=== PATIENT | female | born 1970 | race Caucasian/White ===

== ENCOUNTER → 2021-02-19 16:14 | Outpatient (CLI) | payer BC, SELFPAY ==
[2021-02-19] MEDS: COVID-19 VACC, Ad26(JANSSEN)/PF 0.5 ML IM (16:17)
== END ==
PROVIDERS: Visit Provider Internal Medicine
DX: Z23 Encounter for immunization (principal)
CPT/HCPCS: 0031A; 91303

== ENCOUNTER → 2021-06-03 12:13 | Outpatient (CLI) | payer BC, SELFPAY | PROVIDERS: PCP Physician Assistant; Referring Provider Ophthalmology; Visit Provider Ophthalmology | DX: H10.32 Unspecified acute conjunctivitis, left eye (principal) | CPT/HCPCS: 87070; 87205; 87252 ==

== ENCOUNTER → 2021-06-22 08:30 | Outpatient (CLI) | payer BC, SELFPAY ==
[2021-06-22 18:44] LABS: Add Manual Diff / Slide Review NO; Basophils Absolute Auto 100 /uL (0-100); Basophils Percent Auto 0.9 % (0-2); Eosinophils Absolute Auto 200 /uL (0-450); Eosinophils Percent Auto 2.3 % (2-4); Hematocrit 39.9 % (36-46); Hemoglobin 12.8 g/dL (12.0-16.0); Lymphocytes Absolute Auto 2100 /uL (1100-4500); Lymphocytes Percent Auto 24.3 % (25-40); Mean Corpuscular Hemoglobin 30.4 PG (26-34); Monocytes Absolute Auto 600 /uL (0-900); Monocytes Percent Auto 6.4 % (3-14); Neutrophils Absolute Auto 5800 /uL (1500-7000); Neutrophils Percent Auto 66.1 % (50-75); Platelet Count 215 X10^3/uL (150-400); Red Blood Cell Count 4.21 X10^6/uL (4.0-5.2); Red Cell Distribution Width 13.7 % (11.6-14.8); White Blood Cell Count 8.8 X10^3/uL (4.5-11.0)
[2021-06-22 18:52] LABS: HEMOLYSIS 16 (0-50); Iron 62 ug/dL (37-170)
[2021-06-22 18:55] LABS: Alanine Aminotransferase 22 IU/L (<35); Albumin 4.2 g/dL (3.5-5.0); Albumin Globulin Ratio 1.4 (1.0-2.8); Alkaline Phosphatase 59 U/L (38-126); Aspartate Aminotransferase 28 IU/L (14-36); BUN Creatinine Ratio 27.1 (6-22); Bilirubin Total 0.4 mg/dL (0.2-1.3); Blood Urea Nitrogen 16 mg/dL (7-17); Carbon Dioxide 28 mmol/L (22-32); Chloride 103 mmol/L (98-107); Cholesterol 194 mg/dL (140-199); Estimated Glomerular Filt Rate > 60.0 mL/min (>60); Glucose 87 mg/dL (70-100); HDL Cholesterol 49 mg/dL (40-60); HEMOLYSIS < 15 (0-50); LDL Cholesterol Calculated 110 mg/dL (<100); Sodium 139 mmol/L (137-145); Total Protein 7.2 g/dL (6.3-8.2); Triglycerides 174 mg/dL (35-150)
[2021-06-22 19:07] LABS: Percent Iron Saturation 18 % (15-50); Total Iron Binding Capacity 336 ug/dL (265-497); Transferrin 246 mg/dL (206-381)
[2021-06-22 19:26] LABS: Ferritin 24 ng/mL (6-137)
== END ==
PROVIDERS: PCP Physician Assistant; Visit Provider Family Medicine
DX: D50.9 Iron deficiency anemia, unspecified (principal); J45.30 Mild persistent asthma, uncomplicated; Q24.9 Congenital malformation of heart, unspecified
CPT/HCPCS: 80053; 80061; 82728; 83540; 83550; 85025

== ENCOUNTER → 2022-04-18 07:06 | Outpatient (CLI) | payer BC, SELFPAY ==
[2022-04-18 20:49] LABS: COVID19 - ORCAS (NP or Nasal) Negative (Negative)
== END ==
PROVIDERS: PCP Physician Assistant; Visit Provider Family Medicine
DX: Z20.822 Contact with and (suspected) exposure to COVID-19 (principal)
CPT/HCPCS: U0003

== ENCOUNTER → 2022-10-04 12:34 | Outpatient (CLI) | payer BC, SELFPAY ==
--- NOTE | 2022-10-04 | DI.MG.S_ITS ---
UNILATERAL RIGHT DIGITAL DIAGNOSTIC MAMMOGRAM 3D/2D WITH ADDITIONAL VIEWS: 10/04/2022 CLINICAL: Additional evaluation requested from prior study. Comparison is made to exam dated: 08/01/2022 mammogram - Outside facility. The right breast is heterogeneously dense, which may obscure small masses (category c / 51-75% glandular tissue). There is a possible 8 mm oval low density asymmetry with a circumscribed margin in the right breast at 8 o'clock anterior depth. This is seen in additional views. No other significant masses or calcifications are seen in the breast. IMPRESSION: INCOMPLETE: NEEDS ADDITIONAL IMAGING EVALUATION The possible 8 mm oval low density asymmetry in the right breast remains indeterminate. An ultrasound is recommended. This was performed immediately following this exam. Based on the Tyrer Cuzick model (a risk assessment model) the patient's lifetime risk is 13.6% and her 10 year risk is 3.2%. According to the ACR, ACS, and NCCN guidelines, an annual breast MRI exam along with mammogram is recommended if the patient's lifetime risk is 20% or greater. This exam was interpreted at Station ID: [id number]. NOTE: For mammograms, a report in lay terms will be sent to the patient. Approximately 15% of breast malignancies will not be visualized mammographically. In the management of a palpable breast mass, a negative mammogram must not discourage biopsy of a clinically suspicious lesion. Electronically Signed By: Leidy pastor/:10/04/2022 13:19:01 ACR BI-RADS Category 0: Incomplete 3340F
--- NOTE | 2022-10-04 12:36 | DI.US.S_ITS ---
ULTRASOUND OF RIGHT BREAST AND AXILLA: 10/04/2022 CLINICAL: Patient returns today to evaluate an asymmetry in the right breast. Comparison is made to exams dated: 10/04/2022 mammogram - [facility] and 08/01/2022 mammogram - Outside facility. Color flow ultrasound of the right breast axilla was performed. Solis scale images of the real-time examination were reviewed. There is a 1.1 cm x 0.8 cm x 0.5 cm oval area of fibroglandular tissue with a circumscribed margin in the right breast at 9 o'clock anterior depth 2 cm from the nipple with the long axis parallel to the skin. This oval area of tissue is hypoechoic with a well-defined boundary and no posterior acoustic shadowing or enhancement. This correlates with mammography findings. Color flow imaging demonstrates that there is vascularity present. No significant abnormalities were seen sonographically in the right axilla. IMPRESSION: PROBABLY BENIGN The 1.1 cm x 0.8 cm x 0.5 cm area of tissue in the right breast most likely is fibroglandular tissue or a fibroadenoma, and is probably benign. A follow-up right mammogram and an ultrasound in 6 months is recommended to demonstrate stability. Findings and recommendations were conveyed to the patient at time of exam. This exam was interpreted at Station ID: [id number]. Electronically Signed By: Leidy pastor/:10/04/2022 14:39:22 letter sent: Followup Recommended Ultrasound BI-RADS: 3 Probably benign
== END ==
PROVIDERS: PCP Physician Assistant; Referring Provider Physician Assistant; Visit Provider Physician Assistant
DX: N63.10 Unspecified lump in the right breast, unspecified quadrant (principal); R92.8 Other abnormal and inconclusive findings on diagnostic imaging of breast
CPT/HCPCS: 76642; 77065; G0279

== ENCOUNTER 2023-02-22 13:30 | Outpatient (RCR) | payer BC, SELFPAY ==
--- NOTE | 2022-11-30 14:30 | ST.OPPOC ---
Physical, Occupational & Speech Therapy At [facility] Visit Care Team Role Provider Type Romina Owens PA-C Family Provider Advanced Vault Cashier Primary Care Provider Address: [place], [address] Leila Pozo PA-C Attending Provider Non-Staff Referring Provider Address: [facility] Celine Dodd [address] [place] [address], [id number] Speech Pathology Plan of Care Plan of Care Dates 11/30/2022 - 02/10/[address] Pozo Patient History Faith is a 52 year old female with a history of repeated ear infections. Pt had tubes placed as a child and an adenoidectomy. 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 Pt has migraines, cough-induced asthma, and allergies to dust mites and mold. Asthma is effectively treated with Albuterol inhaler. Colonoscopy in 2021 found a severely tortuous colon and pt had COVID in November 2022. Family history of cleft mitral valve, atrial septal defect, sudden onset unilateral sensorineural hearing loss with choclear implant to resolve, and chronic cough ( mother). Father has allergies, asthma, GERD, and a hiatal hernia. All siblings have asthma and 1 /3 siblings has epilepsy and atrial-septal defect and cleft-mitral valve. History of alcoholism in maternal and paternal grandmothers and pt stated she does not drink alcohol or caffeine. Short-term Goals 1. Pt will perform exercises to decrease strain on vocal folds and reduce frequency of coughing. 2. Pt will participate in laryngoscopy to inform treatment plan. Long-term Goals Pt will report reduced coughing throughout the day. Comment: Electronically Signed by: JOLLY Moreno 12/01/22 [id number] If you are in agreement with this Plan of Care, please return a signed and dated copy. I have reviewed this Plan of Care and certify that the skilled therapy services above are required to meet the patient?s needs. Physician Signature Date Printed Name and Credentials Clinical Instructor Signature Printed Name and Credentials
--- NOTE | 2022-11-30 14:30 | ST.OPIE ---
Visit Care Team Role Provider Type Romina Owens PA-C Family Provider Advanced Hydrometeorological Technician Primary Care Provider Specialty: Medical Address: [address] [place] [address], [address] Email: [email or web address] Leila Pozo PA-C Attending Provider Non-Staff Referring Provider Specialty: Allergy & Immunology Address: [address] [place] [address], [id number] Email: Speech-Language Pathology Initial Evaluation BALANCE STAFF STAKER Clinical Swallow Evaluation Start: 11/30/22 14:26 Freq: Status: Active Protocol: Document 11/30/22 14:26 ZS (Rec: 11/30/22 14:30 ZS [id number]) Clinical Swallow Evaluation Session Time Visit Start Time 13:30 Visit Stop Time 14:05 Total Visit Minutes 35 Visit Information Visit Number Initial Evaluation Plan of Care Dates 11/30/2022 - 02/10/2023 Insurance Information [facility] Out [facility] Referral Referring Provider Dr. Pozo Reason for Referral chronic cough Setting Assessment Location Outpatient Care Visit Type Note Type Initial evaluation Next Note Type Next Note Type Treatment Note Patient Information Identification Type Name History Faith is a 52 year old female with a history of repeated ear infections. Pt had tubes placed as a child and an adenoidectomy. 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 Pt has migraines, cough-induced asthma, and allergies to dust mites and mold. Asthma is effectively treated with Albuterol inhaler. Colonoscopy in 2021 found a severely tortuous colon and pt had COVID in November 2022. Family history of cleft mitral valve, atrial septal defect, sudden onset unilateral sensorineural hearing loss with choclear implant to resolve, and chronic cough (mother). Father has allergies, asthma, GERD, and a hiatal hernia. All siblings have asthma and 1/3 siblings has epilepsy and atrial-septal defect and cleft -mitral valve. History of alcoholism in maternal and paternal grandmothers and pt stated she does not drink alcohol or caffeine. Subjective Observations Faith arrived on time and ambulated to room independently. Pt provided extensive medical and family history in addition to [facility] intake paperwork. Reported by Patient Other Symptoms Coughing Current Diet Regular,Thin liquids Baseline Feeding Method Independent in self-feeding Objective Assessment Mental Status Alert,Responsive,Cooperative Oral Integrity WFL Dentition Within normal limits Lip Function Within normal limits Observation of Lips at Rest Symmetrical Pucker Within normal limits Lip Retraction Within normal limits Alternating Pucker/Lip Retraction Within normal limits Tongue Function Within normal limits Observations of Tongue at Rest Within normal limits Tongue Protrusion Within normal limits Tongue Retraction Within normal limits Tongue Lateralization Within normal limits Jaw Function Within normal limits Observations of Jaw at Rest Within normal limits Jaw Opening Within normal limits Jaw Closing Within normal limits Hard/Soft Palate Function Within normal limits Observations of Hard/Soft Palate Within normal limits Respiratory Sufficiency Within normal limits Comment Pt presented with symmetrical structures at rest and in motion. Tongue, lips, and jaw strength and ROM were WNL. Dentition present and WNL. Structure and function of oral mechanism appears WNL for the purposes of speech and swallowing. Pt exhibited fast rate of speech and resonance was mildly hyponasal. Food and Liquid Trials Results Pt reported chronic cough throughout the day and has been present for about 15 years. Faith moved to the area about 2 years ago. Cough was not responsive to allergy medication and does not change seasonally. Pt did not notice impact of stress levels on cough or changes throughout the day. Pt added cough comes in cycles, where cough will be present and worse for 2-3 weeks and improve for next 2-3 weeks. She has not seen an ENT regarding cough, though had an appointment regarding hearing and ear infections after speech therapy evaluation. Faith reported drinking about two 17 oz bottles of water per day and does not consume alcohol or caffeine. Pt's asthma is triggered by extreme temperature changes, elevation gain, or coughing fits. Cough is often dry. Discussed vocal relaxation exercises, increased water intake, and ENT referral for laryngoscopy to rule out structural or functional abnormalities in vocal folds. Pt expressed understanding and agreement with plan of care. Discussed replacing cough with breathing exercises or sipping water to reduce strain on vocal folds. Referrals Recommended Referrals Otolaryngology/ENT Education Patient/Caregiver Education Described results of evaluation,Patient expressed understanding of evaluation, Patient expressed agreement with goals & treatment plans, Patient requires further education/training Goals Short-term Goals 1. Pt will perform exercises to decrease strain on vocal folds and reduce frequency of coughing. 2. Pt will participate in laryngoscopy to inform treatment plan. Long-term Goals Pt will report reduced coughing throughout the day.
--- NOTE | 2022-12-05 14:04 | ST.OPTN ---
Visit Care Team Role Provider Type Romina Owens PA-C Family Provider Advanced Media Sales Executive Primary Care Provider Address: [address] [place] [address], [address] Leila Pozo PA-C Attending Provider Non-Staff Referring Provider Address: [address] [facility] [address], [place], [address] PV DESIGN ENGINEER Treatment Note PV DESIGN ENGINEER Treatment Note Start: 12/05/22 13:56 Freq: Status: Active Protocol: Document 12/05/22 13:56 ZS (Rec: 12/05/22 14:04 ZS [id number]) Speech Pathology Treatment Note Session Time Visit Start Time 13:30 Visit Stop Time 13:55 Total Visit Minutes 25 Visit Information Visit Number 1 Plan of Care Dates 11/30/2022 - 02/10/2023 Insurance Information [facility] Out of [facility] Treatment Setting Outpatient Care Visit Type Note Type Treatment Note Next Note Type Next Note Type Treatment Note General Information Patient History Faith is a 52 year old female with a history of repeated ear infections. Pt had tubes placed as a child and an adenoidectomy. 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 Pt has migraines, cough-induced asthma, and allergies to dust mites and mold. Asthma is effectively treated with Albuterol inhaler. Colonoscopy in 2021 found a severely tortuous colon and pt had COVID in November 2022. Family history of cleft mitral valve, atrial septal defect, sudden onset unilateral sensorineural hearing loss with cochlear implant to resolve, and chronic cough (mother). Father has allergies, asthma, GERD, and a hiatal hernia. All siblings have asthma and 1/3 siblings has epilepsy and atrial-septal defect and cleft -mitral valve. History of alcoholism in maternal and paternal grandmothers and pt stated she does not drink alcohol or caffeine. Subjective Identification Type Name Identification Reconciled With Medical Record Observations/Patient Presentation Faith arrived on time and ambulated to therapy room independently. Pt reported completing HEP and will talk to ENT in [place], [place] today to check medical records for previous laryngoscopy. Chief Complaint(s) Other Additional Areas of Concern chronic cough Objective Short Term Goals 1. Pt will perform exercises to decrease strain on vocal folds and reduce frequency of coughing. 2. Pt will participate in laryngoscopy to inform treatment plan. Jail Goals Pt will report reduced coughing throughout the day. Treatment Activities Reviewed HEP and discussed POC moving forward. Pt to touch base with [facility] regarding previous laryngoscopy and will have records shared if available. If records are not available, pt will cancel 12/12 appointment and schedule laryngoscopy prior to next PV DESIGN ENGINEER session. Assessment Patient Response to Treatment Good Rehab Potential Good Assessment of Improvement Pt reported drinking water has helped reduce cough and added sharp inhale worsened coughing symptoms. Faith reported suspected broken rib from coughing fit, which has led to more cough suppression rather than encouraging productive cough. Discussed use of water to help with cough suppression and pt expressed understanding. Provided education regarding purpose of water intake, swallowing rather than coughing, and yawn-sigh. Pt expressed understanding. Pt to continue with water intake and yawn-sigh between now and next appointment. Pt to provide either records of previous laryngoscopy or get appointment for laryngoscopy prior to next session. Reviewed with Patient Goals,Progress Being Made,Home Exercise Program Patient/Caregiver Understanding Excellent Plan Amount of Therapy Recommended 2-3 Months Frequency of Treatment Once a Week Length of Session 45 Minutes Therapeutic Contents Home Exercise Program,Other Additional Areas of Treatment Chronic cough Provided Patient/Caregiver Instruction Home Exercise Program,Plan of Care,Questions/Concerns Therapy Recommendations Continue with Current Program
--- NOTE | 2022-12-12 15:03 | ST.OPTN ---
Visit Care Team Role Provider Type Romina Owens PA-C Family Provider Advanced [employer] Insurance Sales Representative Primary Care Provider Address: [address] [place] [address], [address] Leila Pozo PA-C Attending Provider Non-Staff Referring Provider Address: [address] [facility] [address], [place], [address] WAREHOUSE PACKAGING SUPERVISOR Treatment Note WAREHOUSE PACKAGING SUPERVISOR Treatment Note Start: 12/05/22 13:56 Freq: Status: Active Protocol: Document 12/12/22 14:55 ZS (Rec: 12/12/22 15:02 ZS [id number]) Speech Pathology Treatment Note Session Time Visit Start Time 14:30 Visit Stop Time 15:00 Total Visit Minutes 30 Visit Information Visit Number 2 Plan of Care Dates 11/30/2022 - 02/10/2023 Insurance Information [facility] Out of [facility] Treatment Setting Outpatient Care Visit Type Note Type Treatment Note Next Note Type Next Note Type Treatment Note General Information Patient History Faith is a 52 year old female with a history of repeated ear infections. Pt had tubes placed as a child and an adenoidectomy. 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 Pt has migraines, cough-induced asthma, and allergies to dust mites and mold. Asthma is effectively treated with Albuterol inhaler. Colonoscopy in 2021 found a severely tortuous colon and pt had COVID in November 2022. Family history of cleft mitral valve, atrial septal defect, sudden onset unilateral sensorineural hearing loss with cochlear implant to resolve, and chronic cough (mother). Father has allergies, asthma, GERD, and a hiatal hernia. All siblings have asthma and 1/3 siblings has epilepsy and atrial-septal defect and cleft -mitral valve. History of alcoholism in maternal and paternal grandmothers and pt stated she does not drink alcohol or caffeine. Subjective Identification Type Name Identification Reconciled With Medical Record Observations/Patient Presentation Faith arrived on time and ambulated to therapy room independently. Pt observed to have left wrist/hand brace and right arm in sling due to coughing fit. Pt reported completing HEP, stated drinking water sometimes helps cough and sometimes does not. Chief Complaint(s) Other Additional Areas of Concern chronic cough Objective Short Term Goals 1. Pt will perform exercises to decrease strain on vocal folds and reduce frequency of coughing. 2. Pt will participate in laryngoscopy to inform treatment plan. Industrial Cafeteria Manager Goals Pt will report reduced coughing throughout the day. Treatment Activities Reviewed HEP and discussed POC moving forward. Reviewed results of rhinolaryngoscopy from [facility] and discussed diet modifications to minimize reflux and reduce cough. Discussed transition to EOW appointments due to transportation difficulty as pt lives on [facility]. Assessment Patient Response to Treatment Good Rehab Potential Good Assessment of Improvement Pt reported drinking water is inconsistently helpful and stated water is often cold. Suggested trying warm water for cough suppression in addition to hard swallows, as recommended by ENT. Discussed diet modifications based on minimizing reflux symptoms (e. g., no late night snacks, especially high acidity, chocolate, mint, carbonated beverages, etc.). Discussed increase in high fiber foods, alkaline foods, and watery foods for reduced reflux symptoms. Discussed consumption of honey lemon water to reduce reflux and help with cough suppression. Pt to try diet modifications to see if they impact cough frequency. Pt is currently on medication for reflux. Pt stated throat lozenges irritate roof of mouth and are higher in sugar than is currently preferred for diet. Currently uses these when cough is more concentrated (e. g., during COVID when cough was high frequency during the day). Transitioning to EOW appointments due to transportation difficulty and cost as pt lives on the [facility]. Pt inquired about telehealth and was informed it is not currently offered at . Reviewed with Patient Goals,Progress Being Made,Home Exercise Program Patient/Caregiver Understanding Excellent Plan Amount of Therapy Recommended 2-3 Months Comment EOW Length of Session 45 Minutes Therapeutic Contents Home Exercise Program,Other Additional Areas of Treatment Chronic cough Provided Patient/Caregiver Instruction Home Exercise Program,Plan of Care,Questions/Concerns Therapy Recommendations Continue with Current Program
--- NOTE | 2022-12-27 14:11 | ST.OPTN ---
Visit Care Team Role Provider Type Romina Owens PA-C Family Provider Advanced Cad Librarian Primary Care Provider Address: [place], [address] Leila Pozo PA-C Attending Provider Non-Staff Referring Provider Address: [address] [facility] [address], [place], [address] SCHOOL LEADER Treatment Note SCHOOL LEADER Treatment Note Start: 12/05/22 13:56 Freq: Status: Active Protocol: Document 12/27/22 14:07 ZS (Rec: 12/27/22 14:11 ZS [id number]) Speech Pathology Treatment Note Session Time Visit Start Time 13:30 Visit Stop Time 13:47 Total Visit Minutes 17 Visit Information Visit Number 3 Plan of Care Dates 11/30/2022 - 02/10/2023 Insurance Information [facility] Out of [facility] Treatment Setting Outpatient Care Visit Type Note Type Treatment Note Next Note Type Next Note Type Treatment Note General Information Patient History Faith is a 52 year old female with a history of repeated ear infections. Pt had tubes placed as a child and an adenoidectomy. 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 Pt has migraines, cough-induced asthma, and allergies to dust mites and mold. Asthma is effectively treated with Albuterol inhaler. Colonoscopy in 2021 found a severely tortuous colon and pt had COVID in November 2022. Family history of cleft mitral valve, atrial septal defect, sudden onset unilateral sensorineural hearing loss with cochlear implant to resolve, and chronic cough (mother). Father has allergies, asthma, GERD, and a hiatal hernia. All siblings have asthma and 1/3 siblings has epilepsy and atrial-septal defect and cleft -mitral valve. History of alcoholism in maternal and paternal grandmothers and pt stated she does not drink alcohol or caffeine. Subjective Identification Type Name Identification Reconciled With Medical Record Observations/Patient Presentation Faith arrived on time and ambulated to therapy room independently. Pt reported warm beverages did not happen, but did increase time between last meal/dessert and bedtime . Chief Complaint(s) Other Additional Areas of Concern chronic cough Objective Short Term Goals 1. Pt will perform exercises to decrease strain on vocal folds and reduce frequency of coughing. 2. Pt will participate in laryngoscopy to inform treatment plan. Dispatcher Chief Oil Goals Pt will report reduced coughing throughout the day. Treatment Activities Reviewed HEP and discussed POC moving forward. Continue EOW appointments due to transportation difficulty as pt lives on [facility]. Assessment Patient Response to Treatment Good Rehab Potential Good Assessment of Improvement Pt reported drinking water is inconsistently helpful and stated water is often cold. Suggested trying warm water for cough suppression in addition to hard swallows, as recommended by ENT. Continue diet modifications based on minimizing reflux symptoms (e. g., no late night snacks, especially high acidity, chocolate, mint, carbonated beverages, etc.). Continue increase in high fiber foods, alkaline foods, and watery foods for reduced reflux symptoms. Discussed consumption of honey lemon water to reduce reflux and help with cough suppression. Pt to try diet modifications to see if they impact cough frequency. No difference reported in cough frequency at this point; will continue for another 2 weeks to assess effectiveness. Pt to note changes in cough frequency and throat clearing through the day and experiment with steam (either hot towel on face or steam with pot of water) as additional method of increased hydration of vocal folds. Pt is currently on medication for reflux. Pt stated throat lozenges irritate roof of mouth and are higher in sugar than is currently preferred for diet. Currently uses these when cough is more concentrated (e.g., during COVID when cough was high frequency during the day). Transitioning to EOW appointments due to transportation difficulty and cost as pt lives on the [facility]. Pt inquired about telehealth and was informed it is not currently offered at . Reviewed with Patient Goals,Progress Being Made,Home Exercise Program Patient/Caregiver Understanding Excellent Plan Amount of Therapy Recommended 2-3 Months Comment EOW Length of Session 45 Minutes Therapeutic Contents Home Exercise Program,Other Additional Areas of Treatment Chronic cough Provided Patient/Caregiver Instruction Home Exercise Program,Plan of Care,Questions/Concerns Therapy Recommendations Continue with Current Program
--- NOTE | 2023-01-25 14:11 | ST.OPTN ---
Visit Care Team Role Provider Type Romina Owens PA-C Family Provider Advanced Insulation Nozzleman Primary Care Provider Address: [address] [place] [address], [address] Leila Pozo PA-C Attending Provider Non-Staff Referring Provider Address: [address] [facility] [address], [place], [address] CUSTOMS BROKERAGE MANAGER Treatment Note CUSTOMS BROKERAGE MANAGER Treatment Note Start: 12/05/22 13:56 Freq: Status: Active Protocol: Document 01/25/23 14:05 ZS (Rec: 01/25/23 14:11 ZS [id number]) Speech Pathology Treatment Note Session Time Visit Start Time 13:30 Visit Stop Time 14:00 Total Visit Minutes 30 Visit Information Visit Number 4 Plan of Care Dates 01/25/2023 - Insurance Information [facility] Out of [facility] Treatment Setting Outpatient Care Visit Type Note Type Progress Note Next Note Type Next Note Type Treatment Note General Information Patient History Faith is a 52 year old female with a history of repeated ear infections. Pt had tubes placed as a child and an adenoidectomy. 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 Pt has migraines, cough-induced asthma, and allergies to dust mites and mold. Asthma is effectively treated with Albuterol inhaler. Colonoscopy in 2021 found a severely tortuous colon and pt had COVID in November 2022. Family history of cleft mitral valve, atrial septal defect, sudden onset unilateral sensorineural hearing loss with cochlear implant to resolve, and chronic cough (mother). Father has allergies, asthma, GERD, and a hiatal hernia. All siblings have asthma and 1/3 siblings has epilepsy and atrial-septal defect and cleft -mitral valve. History of alcoholism in maternal and paternal grandmothers and pt stated she does not drink alcohol or caffeine. Subjective Identification Type Name Identification Reconciled With Medical Record Observations/Patient Presentation Faith arrived on time and ambulated to therapy room independently. Pt reported catching a cold on top of continued recovery from COVID. Productive cough noted as result of cold and high levels of mucous reported by pt. Noted as productive cough subsides, dry cough also appears to happen less frequently. Pt had lemon water and noted significant improvement in productive cough following hot lemon water. Additionally, dessert earlier in the evening, though pt reported no difference in cough with this behavior change. Productive cough happens primarily in the evenings, Faith noted. Chief Complaint(s) Other Additional Areas of Concern chronic cough Objective Short Term Goals 1. Pt will perform exercises to decrease strain on vocal folds and reduce frequency of coughing. 2. Pt will participate in laryngoscopy to inform treatment plan. Usp Goals Pt will report reduced coughing throughout the day. Treatment Activities Reviewed HEP and discussed POC moving forward. Continue EOW appointments due to transportation difficulty as pt lives on [facility] and to give time for effective strategy implementation between sessions. Assessment Patient Response to Treatment Good Rehab Potential Good Assessment of Improvement Pt reported drinking water is inconsistently helpful. Suggested increased water intake while taking drying medications for mucous control following cold. Recommended beverages/foods high in citric acid to help with mucous, though suggested pt wait 1 hour before brushing teeth after consuming these beverages as it can impact dental enamel. Continue diet modifications based on minimizing reflux symptoms (e. g., no late night snacks, especially high acidity, chocolate, mint, carbonated beverages, etc.). Continue increase in high fiber foods, alkaline foods, and watery foods for reduced reflux symptoms. Discussed continued strategies to determine impact on chronic, dry cough as productive cough from cold subsides. Pt expressed understanding and agreement with plan of care. Reviewed with Patient Goals,Progress Being Made,Home Exercise Program Patient/Caregiver Understanding Excellent Plan Amount of Therapy Recommended 2-3 Months Comment EOW Length of Session 45 Minutes Therapeutic Contents Home Exercise Program,Other Additional Areas of Treatment Chronic cough Provided Patient/Caregiver Instruction Home Exercise Program,Plan of Care,Questions/Concerns Therapy Recommendations Continue with Current Program
--- NOTE | 2023-01-25 14:11 | ST.OPPOC ---
Physical, Occupational & Speech Therapy At [facility] Visit Care Team Role Provider Type Romina Owens PA-C Family Provider Advanced Gyroscopic Instrument Mechanic Primary Care Provider Address: [place], [address] Leila Pozo PA-C Attending Provider Non-Staff Referring Provider Address: [facility] Celine Dodd [address] [place] [address], [id number] Speech Pathology Plan of Care Plan of Care Dates 01/25/2023 - Referring Provider Dr. Pozo Patient History Faith is a 52 year old female with a history of repeated ear infections. Pt had tubes placed as a child and an adenoidectomy. 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 Pt has migraines, cough-induced asthma, and allergies to dust mites and mold. Asthma is effectively treated with Albuterol inhaler. Colonoscopy in 2021 found a severely tortuous colon and pt had COVID in November 2022. Family history of cleft mitral valve, atrial septal defect, sudden onset unilateral sensorineural hearing loss with cochlear implant to resolve, and chronic cough ( mother). Father has allergies, asthma, GERD, and a hiatal hernia. All siblings have asthma and 1 /3 siblings has epilepsy and atrial-septal defect and cleft-mitral valve. History of alcoholism in maternal and paternal grandmothers and pt stated she does not drink alcohol or caffeine. Short Term Goals 1. Pt will perform exercises to decrease strain on vocal folds and reduce frequency of coughing. 2. Pt will participate in laryngoscopy to inform treatment plan. Short-term Goals 1. Pt will perform exercises to decrease strain on vocal folds and reduce frequency of coughing. 2. Pt will participate in laryngoscopy to inform treatment plan. Fpc Goals Pt will report reduced coughing throughout the day. Long-term Goals Pt will report reduced coughing throughout the day. Comment: Electronically Signed by: JOLLY Moreno 01/25/23 1411 If you are in agreement with this Plan of Care, please return a signed and dated copy. I have reviewed this Plan of Care and certify that the skilled therapy services above are required to meet the patient?s needs. Physician Signature Date Printed Name and Credentials Clinical Instructor Signature Printed Name and Credentials
--- NOTE | 2023-02-08 14:11 | ST.OPTN ---
Visit Care Team Role Provider Type Romina Owens PA-C Family Provider Advanced Historical Records Administrator Primary Care Provider Address: [place], [address] Leila Pozo PA-C Attending Provider Non-Staff Referring Provider Address: [address] [facility] [address], [address] COATER OPERATOR Treatment Note COATER OPERATOR Treatment Note Start: 12/05/22 13:56 Freq: Status: Active Protocol: Document 02/08/23 14:08 ZS (Rec: 02/08/23 14:11 ZS [id number]) Speech Pathology Treatment Note Session Time Visit Start Time 13:30 Visit Stop Time 13:45 Total Visit Minutes 15 Visit Information Visit Number 5 Plan of Care Dates 01/25/2023 - Insurance Information [facility] Out of [facility] Treatment Setting Outpatient Care Visit Type Note Type Treatment Note Next Note Type Next Note Type Treatment Note General Information Patient History Faith is a 52 year old female with a history of repeated ear infections. Pt had tubes placed as a child and an adenoidectomy. 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 Pt has migraines, cough-induced asthma, and allergies to dust mites and mold. Asthma is effectively treated with Albuterol inhaler. Colonoscopy in 2021 found a severely tortuous colon and pt had COVID in November 2022. Family history of cleft mitral valve, atrial septal defect, sudden onset unilateral sensorineural hearing loss with cochlear implant to resolve, and chronic cough (mother). Father has allergies, asthma, GERD, and a hiatal hernia. All siblings have asthma and 1/3 siblings has epilepsy and atrial-septal defect and cleft -mitral valve. History of alcoholism in maternal and paternal grandmothers and pt stated she does not drink alcohol or caffeine. Subjective Identification Type Name Identification Reconciled With Medical Record Observations/Patient Presentation Faith arrived on time and ambulated to therapy room independently. Pt reported near full recovery from COVID with only non-productive/ chronic cough remaining. Did not complete HEP and will work on setting a timer to help remember to increase water intake. Chief Complaint(s) Other Additional Areas of Concern chronic cough Objective Short Term Goals 1. Pt will perform exercises to decrease strain on vocal folds and reduce frequency of coughing. 2. Pt will participate in laryngoscopy to inform treatment plan. Jail Goals Pt will report reduced coughing throughout the day. Treatment Activities Reviewed HEP and discussed POC moving forward. Continue EOW appointments due to transportation difficulty as pt lives on [facility] and to give time for effective strategy implementation between sessions. Assessment Patient Response to Treatment Good Rehab Potential Good Assessment of Improvement Pt reported no change in chronic cough and happens sporadically through the day. Pt to track coughing to see if there are times of day with better/worse cough. Suggested increased water intake while taking drying medications for mucous control following cold. Recommended beverages/foods high in citric acid to help with mucous, though suggested pt wait 1 hour before brushing teeth after consuming these beverages as it can impact dental enamel. Continue diet modifications based on minimizing reflux symptoms (e. g., no late night snacks, especially high acidity, chocolate, mint, carbonated beverages, etc.). Continue increase in high fiber foods, alkaline foods, and watery foods for reduced reflux symptoms. Pt to try steam to aid in hydration as well. Pt expressed understanding and agreement with plan of care. Reviewed with Patient Goals,Progress Being Made,Home Exercise Program Patient/Caregiver Understanding Excellent Plan Amount of Therapy Recommended 2-3 Months Comment EOW Length of Session 45 Minutes Therapeutic Contents Home Exercise Program,Other Additional Areas of Treatment Chronic cough Provided Patient/Caregiver Instruction Home Exercise Program,Plan of Care,Questions/Concerns Therapy Recommendations Continue with Current Program
--- NOTE | 2023-02-22 14:09 | ST.OPTN ---
Visit Care Team Role Provider Type Romina Owens PA-C Family Provider Advanced Rigger Third Primary Care Provider Address: [address] [place] [address], [address] Leila Pozo PA-C Attending Provider Non-Staff Referring Provider Address: [address] [facility] [address], [place], [address] RESEARCH PSYCHOLOGIST Treatment Note RESEARCH PSYCHOLOGIST Treatment Note Start: 12/05/22 13:56 Freq: Status: Active Protocol: Document 02/22/23 14:04 ZS (Rec: 02/22/23 14:09 ZS [id number]) Speech Pathology Treatment Note Session Time Visit Start Time 13:30 Visit Stop Time 14:04 Total Visit Minutes 34 Visit Information Visit Number 6 Plan of Care Dates 01/25/2023 - Insurance Information [facility] Out of [facility] Treatment Setting Outpatient Care Visit Type Note Type Treatment Note Next Note Type Next Note Type Treatment Note General Information Patient History Faith is a 52 year old female with a history of repeated ear infections. Pt had tubes placed as a child and an adenoidectomy. 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 Pt has migraines, cough-induced asthma, and allergies to dust mites and mold. Asthma is effectively treated with Albuterol inhaler. Colonoscopy in 2021 found a severely tortuous colon and pt had COVID in November 2022. Family history of cleft mitral valve, atrial septal defect, sudden onset unilateral sensorineural hearing loss with cochlear implant to resolve, and chronic cough (mother). Father has allergies, asthma, GERD, and a hiatal hernia. All siblings have asthma and 1/3 siblings has epilepsy and atrial-septal defect and cleft -mitral valve. History of alcoholism in maternal and paternal grandmothers and pt stated she does not drink alcohol or caffeine. Subjective Identification Type Name Identification Reconciled With Medical Record Observations/Patient Presentation Faith arrived on time and ambulated to therapy room independently. Pt provided cough tracking chart per RESEARCH PSYCHOLOGIST recommendation from previous session. Chief Complaint(s) Other Additional Areas of Concern chronic cough Objective Short Term Goals 1. Pt will perform exercises to decrease strain on vocal folds and reduce frequency of coughing. 2. Pt will participate in laryngoscopy to inform treatment plan. Continuous Dryout Operator Helper Goals Pt will report reduced coughing throughout the day. Treatment Activities Reviewed HEP and discussed POC moving forward. Continue EOW appointments due to transportation difficulty as pt lives on [facility] and to give time for effective strategy implementation between sessions. Assessment Patient Response to Treatment Good Rehab Potential Good Assessment of Improvement Pt's chart indicated decreased coughing starting on 02/16, though could recall no changes in diet, environment, or psychosocial aspects. Faith reported increased water intake with little difference noted in coughing as a result. Pt to continue tracking coughing along with dietary log to see if acid reflux foods may be impacting coughing frequency. Suggested continuing with increased water intake, especially while taking drying medications for mucous control following cold . Suggested transition from [place] cough drops to [place] as [place] have a drying component to them. Recommended beverages/foods high in citric acid to help with mucous, though suggested pt wait 1 hour before brushing teeth after consuming these beverages as it can impact dental enamel. Continue diet modifications based on minimizing reflux symptoms (e. g., no late night snacks, especially high acidity, chocolate, mint, carbonated beverages, etc.). Continue increase in high fiber foods, alkaline foods, and watery foods for reduced reflux symptoms. Pt to try steam to aid in hydration as well. Pt expressed understanding and agreement with plan of care. Reviewed with Patient Goals,Progress Being Made,Home Exercise Program Patient/Caregiver Understanding Excellent Plan Amount of Therapy Recommended 2-3 Months Comment EOW Length of Session 45 Minutes Therapeutic Contents Home Exercise Program,Other Additional Areas of Treatment Chronic cough Provided Patient/Caregiver Instruction Home Exercise Program,Plan of Care,Questions/Concerns Therapy Recommendations Continue with Current Program
--- NOTE | 2023-03-17 09:01 | ST.OPDS ---
Visit Care Team Role Provider Type Romina Owens PA-C Family Provider Advanced Compensation And Benefits Manager Primary Care Provider Address: [address] [place] [address], [address] Leila Pozo PA-C Attending Provider Non-Staff Referring Provider Address: [address] [facility] [address], [place], [address] WARDROBE CONSULTANT Treatment Note WARDROBE CONSULTANT Treatment Note Start: 12/05/22 13:56 Freq: Status: Active Protocol: Document 03/17/23 08:55 ZS (Rec: 03/17/23 09:01 ZS [id number]) Speech Pathology Treatment Note Visit Information Plan of Care Dates 01/25/2023 - Insurance Information [facility] Out [facility] Treatment Setting Outpatient Care Visit Type Note Type Discharge Summary General Information Patient History Faith is a 52 year old female with a history of repeated ear infections. Pt had tubes placed as a child and an adenoidectomy. 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 Pt has migraines, cough-induced asthma, and allergies to dust mites and mold. Asthma is effectively treated with Albuterol inhaler. Colonoscopy in 2021 found a severely tortuous colon and pt had COVID in November 2022. Family history of cleft mitral valve, atrial septal defect, sudden onset unilateral sensorineural hearing loss with cochlear implant to resolve, and chronic cough (mother). Father has allergies, asthma, GERD, and a hiatal hernia. All siblings have asthma and 1/3 siblings has epilepsy and atrial-septal defect and cleft -mitral valve. History of alcoholism in maternal and paternal grandmothers and pt stated she does not drink alcohol or caffeine. Subjective Identification Type Name Identification Reconciled With Medical Record Chief Complaint(s) Other Additional Areas of Concern chronic cough Objective Short Term Goals 1. Pt will perform exercises to decrease strain on vocal folds and reduce frequency of coughing. 2. Pt will participate in laryngoscopy to inform treatment plan. Lean Six Sigma Black Belt Goals Pt will report reduced coughing throughout the day. Assessment Patient Response to Treatment Good Rehab Potential Good Assessment of Improvement Discharging from speech therapy due to staffing and schedule changes resulting in no available appointments that work with Faith's schedule. Placing Faith on a waitlist at this time and will contact when staffing/schedule changes improve. Faith has done an excellent job of implementing strategies for cough reduction at home as well as tracking cough to determine patters. Recommend continued implementation of HEP to aid in chronic cough reduction. Reviewed with Patient Goals,Progress Being Made,Home Exercise Program Patient/Caregiver Understanding Excellent Plan Therapeutic Contents Home Exercise Program,Other Additional Areas of Treatment Chronic cough Provided Patient/Caregiver Instruction Home Exercise Program,Plan of Care,Questions/Concerns Therapy Recommendations Discharge to Home Exercise Program,Discharge from Speech Therapy Reason for Discharge Scheduling/staffing changes at limiting availability for appointments.
== END 2023-03-21 15:19 | disposition home or self-care (01) ==
LOC: SP 13:30
PROVIDERS: Family Provider Physician Assistant; PCP Physician Assistant; Referring Provider Physician Assistant Medical; Visit Provider Physician Assistant Medical
DX: R05.3 Chronic cough (principal); R05.8 Other specified cough
CPT/HCPCS: 92507; 92610

== ENCOUNTER → 2023-03-29 13:30 | Outpatient (CLI) | payer BC, SELFPAY ==
--- NOTE | 2023-03-29 13:31 | DI.US.S_ITS ---
LIMITED ULTRASOUND OF RIGHT BREAST AND AXILLA: 03/29/2023 CLINICAL: Patient returns today to evaluate a focal asymmetry in the right breast. Comparison is made to exams dated: 03/29/2023 mammogram, 10/04/2022 ultrasound, 10/04/2022 mammogram - [facility], and 08/01/2022 mammogram - Outside facility. Color flow and real-time ultrasound of the right breast 9 o'clock, and axilla regions were performed. Solis scale images of the real-time examination were reviewed. There is a stable 1.1 cm x 0.8 cm x 0.5 cm oval mass with a circumscribed margin in the right breast at 9 o'clock anterior depth 2 cm from the nipple with the long axis parallel to the skin. This oval mass is hypoechoic with a well-defined boundary and no posterior acoustic shadowing or enhancement. This correlates with mammography findings. Color flow imaging demonstrates that there is vascularity present. No significant abnormalities were seen sonographically in the right axilla. IMPRESSION: PROBABLY BENIGN The stable 1.1 cm x 0.8 cm x 0.5 cm oval mass in the right breast resembles a fibroadenoma or fibrocystic change and is probably benign. No enlarged right axillary lymph nodes. A follow-up mammogram and an ultrasound in 6 months is recommended to demonstrate stability. Exam findings were conveyed to the patient. This exam was interpreted at Station ID: [id number]. Electronically Signed By: David Winter M.D. slc/:03/29/2023 14:55:26 letter sent: Followup Recommended Ultrasound BI-RADS: 3 Probably benign
--- NOTE | 2023-03-29 13:31 | DI.MG.S_ITS ---
UNILATERAL RIGHT DIGITAL DIAGNOSTIC MAMMOGRAM 3D/2D: 03/29/2023 CLINICAL: Short term follow up of the right breast. Comparison is made to exams dated: 10/04/2022 ultrasound, 10/04/2022 mammogram - [facility], and 08/01/2022 mammogram - Outside facility. The right breast is heterogeneously dense, which may obscure small masses (category c / 51-75% glandular tissue). There is an 8 mm asymmetry in the right breast at 9 o'clock anterior depth. This is less prominent. No other significant masses or calcifications are seen in the breast. IMPRESSION: INCOMPLETE: NEEDS ADDITIONAL IMAGING EVALUATION The 8 mm asymmetry in the right breast is indeterminate. A targeted ultrasound is recommended and will immediately follow. Based on the Tyrer Cuzick model (a risk assessment model) the patient's lifetime risk is 13.6% and her 10 year risk is 3.2%. According to the ACR, ACS, and NCCN guidelines, an annual breast MRI exam along with mammogram is recommended if the patient's lifetime risk is 20% or greater. This exam was interpreted at Station ID: [id number]. NOTE: For mammograms, a report in lay terms will be sent to the patient. Approximately 15% of breast malignancies will not be visualized mammographically. In the management of a palpable breast mass, a negative mammogram must not discourage biopsy of a clinically suspicious lesion. Electronically Signed By: David Winter M.D. slc/:03/29/2023 13:53:54 ACR BI-RADS Category 0: Incomplete 3340F
== END ==
PROVIDERS: Family Provider Physician Assistant; PCP Physician Assistant; Referring Provider Physician Assistant; Visit Provider Physician Assistant
DX: R92.8 Other abnormal and inconclusive findings on diagnostic imaging of breast (principal); N63.15 Unspecified lump in the right breast, overlapping quadrants
CPT/HCPCS: 76642; 77065; G0279

== ENCOUNTER → 2023-04-05 08:59 | Outpatient (CLI) | payer BC, SELFPAY ==
[2023-04-05 20:20] LABS: Alanine Aminotransferase 29 IU/L (<35); Albumin 4.5 g/dL (3.5-5.0); Albumin Globulin Ratio 1.5 (1.0-2.8); Alkaline Phosphatase 68 U/L (38-126); Aspartate Aminotransferase 33 IU/L (14-36); BUN Creatinine Ratio 25.9 (6-22); Bilirubin Total 0.2 mg/dL (0.2-1.3); Blood Urea Nitrogen 15 mg/dL (7-17); Calcium 8.8 mg/dL (8.4-10.2); Carbon Dioxide 30 mmol/L (22-32); Chloride 100 mmol/L (98-107); Cholesterol 237 mg/dL (140-199); Estimated Glomerular Filt Rate > 60 mL/min (>60); Glucose 91 mg/dL (70-100); HDL Cholesterol 51 mg/dL (40-60); HEMOLYSIS < 15 (0-50); LDL Cholesterol Calculated 129 mg/dL (<100); Potassium 4.2 mmol/L (3.4-5.1); Sodium 137 mmol/L (137-145); Total Protein 7.5 g/dL (6.3-8.2); Triglycerides 285 mg/dL (35-150); Uric Acid 4.6 mg/dL (2.5-6.2)
[2023-04-05 20:22] LABS: Add Manual Diff / Slide Review NO; Basophils Absolute Auto 100 /uL (0-100); Basophils Percent Auto 0.7 % (0-2); Eosinophils Absolute Auto 300 /uL (0-450); Eosinophils Percent Auto 4.1 % (2-4); Hematocrit 37.7 % (36-46); Hemoglobin 12.7 g/dL (12.0-16.0); Lymphocytes Absolute Auto 2700 /uL (1100-4500); Lymphocytes Percent Auto 35.1 % (25-40); Mean Corpuscular HGB Conc 33.7 % (30-36); Mean Corpuscular Hemoglobin 31.3 PG (26-34); Monocytes Absolute Auto 500 /uL (0-900); Monocytes Percent Auto 6.5 % (3-14); Neutrophils Absolute Auto 4100 /uL (1500-7000); Neutrophils Percent Auto 53.6 % (50-75); Platelet Count 254 X10^3/uL (150-400); Red Blood Cell Count 4.05 X10^6/uL (4.0-5.2); Red Cell Distribution Width 14.2 % (11.6-14.8); White Blood Cell Count 7.7 X10^3/uL (4.5-11.0)
[2023-04-05 20:24] LABS: Rheumatoid Factor < 8.6 IU/mL (<12.0)
[2023-04-05 20:35] LABS: Erythrocyte Sedimentation Rate 15 MM/HR (0-20)
[2023-04-05 20:54] LABS: TSH w/ Reflex to FT4 2.59 uIU/mL (0.47-4.68)
[2023-04-11 14:12] LABS: ANA Screen, IFA Negative (.)
== END ==
PROVIDERS: Family Provider Physician Assistant; PCP Physician Assistant; Visit Provider Physician Assistant
DX: E78.00 Pure hypercholesterolemia, unspecified (principal); Z79.899 Other long term (current) drug therapy; Z86.2 Personal history of diseases of the blood and blood-forming organs and certain disorders involving the immune mechanism; M19.90 Unspecified osteoarthritis, unspecified site; M25.50 Pain in unspecified joint
CPT/HCPCS: 80053; 80061; 84443; 84550; 85025; 85651; 86038; 86430

== ENCOUNTER → 2023-06-15 11:02 | Outpatient (CLI) | payer BC, SELFPAY ==
--- NOTE | 2023-06-15 11:03 | DI.MRI.S_ITS ---
PROCEDURE: MR WRIST LT WO CON INDICATIONS: Left wrist pain TECHNIQUE: Noncontrast coronal proton density fast spin echo and T2 fast spin echo with fat saturation; coronal 3-D gradient echo, axial T1 spin echo and T2 fast spin echo with fat saturation, sagittal T1 spin echo through the wrist. COMPARISON: None. FINDINGS: Image quality: Excellent. Bones and cartilage: The carpal bones are normally aligned. No bone marrow contusions or fractures. No evidence for avascular necrosis. Mild wrist joint space narrowing and thinning of articulating cartilage particularly involving radiocarpal and ulnar carpal joint is seen. Carpal ligaments: The scapholunate and lunotriquetral ligaments appear intact. In the absence of intra-articular contrast, the extrinsic carpal ligaments are not well identified. On sagittal images, the pisohamate ligament appears intact. Triangular fibrocartilage complex: Heterogeneous signal within triangular fibrocartilage is seen, subtle TFCC tear near its radial insertion is suspected. The adjacent meniscal homolog appears normal in the absence of intra-articular contrast. The extensor carpi ulnaris tendon is mildly thickened at the level of distal ulna/ulnar styloid. Tendons and soft tissues: The carpal tunnel structures appear normal, including the median nerve. The ulnar nerve appears normal within Guyon's canal. All six extensor tendon compartments demonstrate normal morphology, without pathologic tendon sheath fluid. No soft tissue ganglion cysts. IMPRESSION: 1. 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 No fracture or dislocation. No evidence of avascular necrosis. 2. Scapholunate and lunotriquetral ligaments are intact. 3. Suggestion of degenerative changes within triangular fibrocartilage, focal TFCC tear cannot be excluded particularly near its radial insertion. 4. Mild tendinosis involving extensor carpi ulnaris tendon at the level of distal ulnar/ulnar styloid. Rest of the extensor and flexor tendons are intact. Dictated by: Pato Deshpande M.D. on 06/15/2023 at 15:09 Approved by: Pato Deshpande M.D. on 06/15/2023 at 15:22
--- NOTE | 2023-06-15 11:03 | DI.MRI.S_ITS ---
PROCEDURE: MR HAND LT WO CON INDICATIONS: Left hand pain TECHNIQUE: Noncontrast coronal T1 spin echo and T2 fast spin echo with fat saturation, axial proton density fast spin echo and T2 fast spin echo with fat saturation, sagittal T1 spin echo and STIR through the hand and fingers. COMPARISON: [facility] ([place]), CR, XR HAND LT MIN 3V, 04/27/2023, 14:11. FINDINGS: Image quality: Excellent. Bones: The bones are normally aligned, without marrow contusions or fractures. No intra-osseous lesions. Interphalangeal joint(s): The accessory and proper collateral ligaments appear intact. The volar plate demonstrates normal morphology. The extensor central slips appear intact on sagittal images. Metacarpophalangeal joint(s): The accessory and proper collateral ligaments appear intact, as well as the volar plate and adjacent deep transverse metacarpal ligaments. The sagittal bands of the extensor petty appear normal. Extensor apparatus: The central slips insert normally on the middle phalangeal base. The conjoint and terminal tendons insert normally on the distal phalangeal bases. More proximal portions of the extensor tendons also appear normal. Flexor apparatus: The flexor digitorum superficialis and profundus tendons both appear intact. All annular and cruciform pulleys appear intact, without adjacent soft tissue edema. Soft tissues: Visualized muscles demonstrate normal bulk and internal signal. No intramuscular masses identified. No ganglion cysts. IMPRESSION: 1. Please refer to MRI of wrist report for additional findings in the wrist area. 2. No marrow edema. No fracture or dislocation. No bony erosive changes or suspicious bony lesions. 3. No gross internal derangement is seen in left hand. Dictated by: Pato Deshpande M.D. on 06/15/2023 at 15:08 Approved by: Pato Deshpande M.D. on 06/15/2023 at 15:09
== END ==
PROVIDERS: Family Provider Physician Assistant; PCP Physician Assistant; Referring Provider Physician Assistant; Visit Provider Physician Assistant
DX: M19.032 Primary osteoarthritis, left wrist (principal); M25.532 Pain in left wrist; M79.642 Pain in left hand
CPT/HCPCS: 73218; 73221

== ENCOUNTER → 2023-09-06 09:22 | Outpatient (CLI) | payer BC, SELFPAY ==
[2023-09-06 20:03] LABS: Alanine Aminotransferase 38 IU/L (<35); Albumin Globulin Ratio 1.2 (1.0-2.8); Alkaline Phosphatase 68 U/L (38-126); Aspartate Aminotransferase 37 IU/L (14-36); BUN Creatinine Ratio 21.3 (6-22); Bilirubin Total 0.3 mg/dL (0.2-1.3); Blood Urea Nitrogen 13 mg/dL (7-17); Carbon Dioxide 25 mmol/L (22-32); Chloride 103 mmol/L (98-107); Cholesterol 191 mg/dL (140-199); Estimated Glomerular Filt Rate > 60 mL/min (>60); Globulin 3.3 g/dL (1.7-4.1); Glucose 94 mg/dL (70-100); HDL Cholesterol 51 mg/dL (40-60); HEMOLYSIS < 15 (0-50); LDL Cholesterol Calculated 102 mg/dL (<100); Potassium 4.1 mmol/L (3.4-5.1); Sodium 139 mmol/L (137-145); Total Protein 7.3 g/dL (6.3-8.2); Triglycerides 188 mg/dL (35-150); Uric Acid 5.4 mg/dL (2.5-6.2)
== END ==
PROVIDERS: Family Provider Physician Assistant; PCP Physician Assistant; Visit Provider Physician Assistant
DX: M25.532 Pain in left wrist (principal); E78.5 Hyperlipidemia, unspecified
CPT/HCPCS: 80053; 80061; 84550

== ENCOUNTER → 2023-09-27 11:47 | Outpatient (CLI) | payer OTHER, SELFPAY ==
--- NOTE | 2023-09-27 11:50 | DI.MG.S_ITS ---
BILATERAL DIGITAL DIAGNOSTIC MAMMOGRAM 3D/2D SHORT-TERM FOLLOW-UP: 09/27/2023 CLINICAL: Short term follow up of the right breast, due for bilateral imaging. Comparison is made to exams dated: 03/29/2023 mammogram, 10/04/2022 mammogram - , 08/01/2022 mammogram - Outside facility, and 03/29/2023 ultrasound - . Both breasts are heterogeneously dense, which may obscure small masses (category c / 51-75% glandular tissue). There is an 8 mm asymmetry in the right breast at 9 o'clock anterior depth. This is less prominent. No other significant masses, calcifications, or other findings are seen in either breast. IMPRESSION: INCOMPLETE: NEEDS ADDITIONAL IMAGING EVALUATION The 8 mm asymmetry in the right breast is indeterminate. A targeted ultrasound is recommended and will immediately follow. Based on the Tyrer Cuzick model (a risk assessment model) the patient's lifetime risk is 13.6% and her 10 year risk is 3.4%. According to the ACR, ACS, and NCCN guidelines, an annual breast MRI exam along with mammogram is recommended if the patient's lifetime risk is 20% or greater. This exam was interpreted at Station ID: [id number]. NOTE: For mammograms, a report in lay terms will be sent to the patient. Approximately 15% of breast malignancies will not be visualized mammographically. In the management of a palpable breast mass, a negative mammogram must not discourage biopsy of a clinically suspicious lesion. Electronically Signed By: David Winter M.D. slc/:09/27/2023 12:35:48 ACR BI-RADS Category 0: Incomplete 3340F
--- NOTE | 2023-09-27 11:50 | DI.US.S_ITS ---
LIMITED ULTRASOUND OF RIGHT BREAST AND AXILLA: 09/27/2023 CLINICAL: Patient returns today to evaluate a focal asymmetry in the right breast. Comparison is made to exams dated: 09/27/2023 mammogram, 03/29/2023 ultrasound, 03/29/2023 mammogram, 10/04/2022 ultrasound, 10/04/2022 mammogram - [facility], and 08/01/2022 mammogram - Outside facility. Color flow, real-time, and continuous wave Doppler ultrasound of the right breast 9 o'clock, and axilla regions were performed. There is a 1.1 cm x 0.9 cm x 0.6 cm oval mass with an indistinct and microlobulated margin in the right breast at 10 o'clock anterior depth 2 cm from the nipple. This oval mass is hypoechoic. This abnormality is not significantly changed in size and correlates with mammography findings. Color flow imaging demonstrates that there is increased vascularity. No significant abnormalities were seen sonographically in the right axilla. IMPRESSION: SUSPICIOUS OF MALIGNANCY The 1.1 cm x 0.9 cm x 0.6 cm oval mass in the right breast is at a low suspicion for malignancy. There is increased blood flow and the margin is less defined. An ultrasound guided biopsy is recommended. No enlarged right axillary lymph nodes. Exam findings were discussed with the patient. This exam was interpreted at Station ID: [id number]. Electronically Signed By: David Winter M.D. slc/:09/27/2023 13:12:32 letter sent: Biopsy Required Ultrasound BI-RADS: 4a Low suspicion for malignancy
== END ==
PROVIDERS: Family Provider Physician Assistant; PCP Physician Assistant; Referring Provider Physician Assistant; Visit Provider Physician Assistant
DX: R92.8 Other abnormal and inconclusive findings on diagnostic imaging of breast (principal); N63.11 Unspecified lump in the right breast, upper outer quadrant
CPT/HCPCS: 76642; 77066; G0279

== ENCOUNTER → 2023-10-16 14:19 | Outpatient (CLI) | payer OTHER, SELFPAY ==
--- NOTE | 2023-10-16 | DI.US.S_ITS ---
ULTRASOUND GUIDED BIOPSY RIGHT BREAST WITH MARKING DEVICE INSERTED AND POST MAMMOGRAPHIC IMAGIN10/16/2023 CLINICAL: Right breast mass. PATIENT CONSENT: Risks (minor bleeding, infection, vasovagal reaction and repeat procedure), benefits and alternatives were explained to the patient and written informed consent was obtained. Correlation is made to exams dated: 10/16/2023 mammogram, 09/27/2023 ultrasound, 09/27/2023 mammogram, 03/29/2023 ultrasound, 03/29/2023 mammogram, and 10/04/2022 ultrasound - [facility]. An ultrasound guided biopsy using real-time ultrasound was performed for the mass located in the right breast at 9 o'clock, 2 cm from the nipple. The skin was prepped in the usual manner. Local anesthetic was administered to the access site. A skin jitendra was made in the breast. The abnormality was approached from the lateral aspect. A 14 gauge biopsy needle was placed adjacent to the abnormality under ultrasound guidance. Once the needle was documented to be in the correct location, two specimens were obtained using BARD Elevation biopsy device. A Vision clip was inserted into the biopsy cavity. A sterile dressing was applied to the access site. Post procedure mammographic imaging demonstrates the biopsy clip at the targeted area. The specimens were sent to the laboratory for pathological analysis. IMPRESSION: ULTRASOUND GUIDED BIOPSY HIGH RISK BENIGN Ultrasound guided biopsy of the mass in the right breast at 9 o'clock posterior depth 2 cm from the nipple was successful. Pathology indicates high risk benign minute focus of atypical lobular hyperplasia (approximately 2 mm). Background benign fibroepithelial lesion, consitent with with fibroadenoma. Negative for malignancy. Pathology results are concordant with imaging findings. A surgical consultation is recommended to evaluate for possible excision given high-risk benign findings. This exam was interpreted at Station ID: [id number]. Cami Weaver M.D., PH.D Jair Villafuerte M.D. leyla,ar/:10/24/2023 10:00:49
--- NOTE | 2023-10-16 | DI.MG.S_ITS ---
UNILATERAL RIGHT DIGITAL DIAGNOSTIC MAMMOGRAM 3D/2D: 10/16/2023 CLINICAL: Post clip placement. Comparison is made to exams dated: 09/27/2023 mammogram and 03/29/2023 mammogram - [facility]. The right breast is heterogeneously dense, which may obscure small masses (category c / 51-75% glandular tissue). The patient is status post same day ultrasound guided core biopsy of 9 o'clock mass. Post biopsy mammogram demonstrates biopsy clip in the expected location. IMPRESSION: POST PROCEDURE MAMMOGRAM FOR MARKER PLACEMENT Post biopsy mammogram demonstrates biopsy clip in the expected location. Please see separately dictated ultrasound guided biopsy report for additional details and pathology. Based on the Tyrer Cuzick model (a risk assessment model) the patient's lifetime risk is 12.4% and her 10 year risk is 3.1%. According to the ACR, ACS, and NCCN guidelines, an annual breast MRI exam along with mammogram is recommended if the patient's lifetime risk is 20% or greater. This exam was interpreted at Station ID: [id number]. NOTE: For mammograms, a report in lay terms will be sent to the patient. Approximately 15% of breast malignancies will not be visualized mammographically. In the management of a palpable breast mass, a negative mammogram must not discourage biopsy of a clinically suspicious lesion. Electronically Signed By: Cami Weaver M.D., PH.D eb/:10/17/2023 13:00:46 ACR BI-RADS Category Post-procedure mammogram for marker placement
--- NOTE | 2023-10-16 | PATH_ITS ---
[facility] Accession Number: [id number] No. of containers..01 Tissue . 01 Material submitted: . breast - RIGHT BREAST MASS 9:00 2CMFN . 01 Diagnosis: Right Breast Mass At 9 o'clock 2 cm From Nipple, Needle Core Biopsy: Minute focus of atypical lobular hyperplasia (approximately 2 mm). Background benign fibroepithelial lesion, consistent with fibroadenoma. Negative for malignancy. [facility] 10/20/2023 1250 Local . 01 Comment: As part of routine quality consultant, this case was also reviewed by Dr. Brambila, who agrees with the interpretation. . 01 Electronically signed: . Lucy Justin MD, Pathologist NPI- [id number] . 01 Gross description: . The specimen is received in formalin labeled with the patient's name, , and US BX breast, consists of multiple yellow to hurtado soft tissue fragments aggregating to 1.2 x 0.7 x 0.2 cm. Filtered, inked blue, and submitted entirely in cassette A1. . The specimen was removed on 10/16/2023 at 1515; time in formalin not provided; cold ischemic time cannot be calculated; and total fixation time is approximately 28 hours. ([id number]) /MRV 10/17/2023 1818 Local . 01 Microscopic: . An immunohistochemistry panel is performed to further evaluate the cells of interest. The control stains show appropriate reactivity. . RESULTS: Block A1 Beta-catenin: Attenuated staining in region of interest. E-cadherin: Attenuated staining in region of interest. . The region of attenuated staining correlates morphologically with a small focus of atypical lobular hyperplasia that involves an approximately 2 mm focus. . * This test was developed and its performance characteristics determined by [employer]. It has not been cleared or approved by the U.S. Food and Drug Administration. The FDA has determined that such clearance or approval is not necessary. This test is used for clinical purposes. It should not be regarded as investigational or for research. . 01 Pathologist provided ICD-10: R92.8 . 01 CPT . 642393, Q03444, Y68201 Performed at: 01 [facility] [address] [place] [address] [address] [facility], [place], [place] [id number] MD Obed Weems MD Phone: [phone]
== END ==
PROVIDERS: Family Provider Physician Assistant; PCP Physician Assistant; Referring Provider Physician Assistant; Visit Provider Physician Assistant
DX: D24.1 Benign neoplasm of right breast (principal)
CPT/HCPCS: 19083; 77065

== ENCOUNTER → 2023-11-29 09:34 | Outpatient (CLI) | payer OTHER, SELFPAY ==
--- NOTE | 2023-11-29 | DI.MG.S_ITS ---
SPECIMEN RIGHT BREAST: 11/29/2023 CLINICAL: [place]. Correlation is made to exams dated: 11/29/2023 mammogram, 11/29/2023 localization, 10/16/2023 ultrasound biopsy, 10/16/2023 mammogram, and 09/27/2023 mammogram - [facility]. A surgical specimen was imaged for the previous biopsy site located in the right breast at 9 o'clock anterior depth. IMPRESSION: SPECIMEN The imaged specimen includes a biopsy clip and a wire localization device. This exam was interpreted at Station ID: [id number]. Jair Villafuerte M.D. ar/:11/29/2023 13:40:54
--- NOTE | 2023-11-29 09:36 | DI.MG.S_ITS ---
UNILATERAL RIGHT DIGITAL DIAGNOSTIC MAMMOGRAM 3D/2D - RIGHT BREAST: 11/29/2023 CLINICAL: Post wire loc. Comparison is made to exams dated: 10/16/2023 mammogram, 09/27/2023 mammogram, 03/29/2023 mammogram, 11/29/2023 localization, and 10/16/2023 ultrasound biopsy - [facility]. The right breast is heterogeneously dense, which may obscure small masses (category c / 51-75% glandular tissue). There is a percutaneous localization wire in the appropriate position with reinforced portion of the wire adjacent to the biopsy marker in the right breast at 9 o'clock anterior depth. IMPRESSION: POST PROCEDURE MAMMOGRAM FOR MARKER PLACEMENT There was a successful localization wire placement in the right breast anterior depth. Based on Tyrer-Cuzick model (a risk assessment model), the patient's lifetime risk is 43.3% and her 10 year risk is 12.7%. If a patient has an elevated risk, a more comprehensive evaluation should be considered and/or a referral to a genetic counselor. The [place] [employer], [place] [employer], and NCCN Guidelines advise the consideration of Breast MRI as an adjunct to screening mammography in patients whose Lifetime risk to develop breast cancer is 20% or higher. This exam was interpreted at Station ID: [id number]. NOTE: For mammograms, a report in lay terms will be sent to the patient. Approximately 15% of breast malignancies will not be visualized mammographically. In the management of a palpable breast mass, a negative mammogram must not discourage biopsy of a clinically suspicious lesion. Electronically Signed By: Jair Villafuerte M.D. ar/:11/29/2023 13:16:08 ACR BI-RADS Category Post-procedure mammogram for marker placement
--- NOTE | 2023-11-29 09:36 | DI.US.S_ITS ---
ULTRASOUND GUIDED WIRE LOCALIZATION RIGHT BREAST WITH POST DIGITAL MAMMOGRAPHIC IMAGIN11/29/2023 CLINICAL: Pre-op wire loc. Correlation is made to exams dated: 10/16/2023 ultrasound biopsy, 10/16/2023 mammogram, 09/27/2023 ultrasound, 09/27/2023 mammogram, and 03/29/2023 ultrasound - [facility]. A wire localization using ultrasound guidance was performed for the marker clip located in the right breast at 9 o'clock posterior depth. This was described on the previous biopsy report. The skin was prepped in the usual manner. Local anesthetic was administered to the access site. The localization was approached from the lateral aspect. A J-hook wire was inserted adjacent to the marker under ultrasound guidance. A sterile dressing was applied to the access site. Post placement digital mammographic imaging was obtained. IMPRESSION: WIRE LOCALIZATION Wire localization for the marker clip in the right breast at 9 o'clock posterior depth was successful with no apparent post procedure complications. This exam was interpreted at Station ID: [id number]. Jair gomes/talha:11/29/2023 13:13:52
== END ==
LOC: US 09:35
PROVIDERS: Family Provider Physician Assistant; PCP Physician Assistant; Referring Provider Surgery; Visit Provider Surgery
DX: N60.91 Unspecified benign mammary dysplasia of right breast; N63.15 Unspecified lump in the right breast, overlapping quadrants
CPT/HCPCS: 19285; 76098; 77065; C1819

== ENCOUNTER 2023-11-29 09:38 | Observation (INO) | payer OTHER, SELFPAY ==
[2023-11-27 12:54] VITALS: BMI 27.7
--- NOTE | 2023-11-28 08:56 | PM.PREOP ---
Pre-operative Note Interval Note History & Physical reviewed/Exam performed by Physician: Yes Changes to H&P: No
[2023-11-29] VITALS (18 sets, daily range): BP systolic 96–126; BP diastolic 64–88; PULSE 78–115; RESP 12–96; TEMP 35.8–36.8; O2SAT 16–98; BMI 27.7
--- NOTE | 2023-11-29 | PATH_ITS ---
[facility] Accession Number: [id number] No. of containers..01 Tissue . 01 Material submitted: . breast - RIGHT BREAST MASS . 01 Clinical history: . GREEN IS ANTERIOR, BLUE IS INFERIOR, ORANGE IS LATERAL, YELLOW IS MEDIAL, BLACK IS POSTERIOR, RED IS SUPERIOR . 01 Diagnosis: A. Right Breast Mass, Excision: Breast tissue with intraductal papilloma (6 mm). Background with fibrocystic disease, including focal florid usual ductal hyperplasia, sclerosing adenosis, columnar cell change/columnar cell hyperplasia, and microcysts. Biopsy/procedural site changes present. No evidence of atypia, carcinoma in situ and malignancy. MRV 12/06/2023 1346 Local . 01 Electronically signed: . Cinthia Brambila MD, Pathologist NPI- [id number] . 01 Gross description: . Received: In formalin, labeled with the patient's name, , and right breast mass. Specimen: An oriented, previously inked, right lumpectomy. Weight: 13 grams. Measurement: 3.5 cm from anterior to posterior, 3.1 cm from medial to lateral, and 1.6 cm from superior to inferior. Skin ellipse: Absent. Wire: Entering superiorly and terminating approximately medially. Margins: Inked by the surgeon as follows: Anterior green, inferior blue, lateral orange, medial yellow, posterior black, superior red. Inking is reinforced at the bench. Sliced: From anterior to posterior into eight slices. Lesion: One lesion identified. Description: An ill-defined, hurtado, firm area. Size: 1.2 x 0.7 x 0.4 cm. Slices involved: Slices 2-5. Biopsy site: A Vision biopsy clip is identified within slice 2. Distance to margins: The lesion grossly approaches the red-inked margin, 0.7 cm from the yellow-inked margin, 0.9 cm from the blue margin, greater than 0.4 cm from the green-inked margin, and greater than 1 cm from all remaining margins. Other: The remaining cut surfaces are yellow to white fibroadipose tissue with fibrous tissue occupying approximately 20% of the cut surface. No additional lesions are identified. Fixation: The specimen was removed on 11/29/2023; time not provided; cold ischemic time cannot be calculated; and total fixation time is approximately 66 hours following additional fixation. The specimen is submitted entirely as follows: A1-A2: Slice 1 perpendicular. A3: Slice 2 with biopsy site. A4: Thinned out portion of slice 2. A5: Slice 3. A6: Slice 4. A7: Slice 5. A8: Slice 6. A9: Slice 7. A10-A11: Slice 8 perpendicular. (AG:cmc10 [id number]) /MRV 11/30/2023 [facility]5 Local . 01 Microscopic: . E-cadherin and beta-catenin immunostains are performed on blocks A7 and A11, in order to evaluate an area of possible lobular neoplasia, with appropriately staining external controls. . In block A7, there is no loss of these markers, in support of no evidence of lobular neoplasia in this block. In block A11, most of the lesion of concern disappears on the tissue section for IHC, nonetheless, the rest of it that is present and is relatively manufacturing sales representative of the lesion of interest, does not show loss of these markers. . CK5/6 and ER are performed on block A6, in order to evaluate the intraductal hyperplasia; both markers demonstrate mosaic pattern, in support of usual ductal hyperplasia. . * This test was developed and its performance characteristics determined by [employer]. It has not been cleared or approved by the U.S. Food and Drug Administration. The FDA has determined that such clearance or approval is not necessary. This test is used for clinical purposes. It should not be regarded as investigational or for research. . 01 Pathologist provided ICD-10: N63.10 . 01 CPT . 141730, U81665, I01741 Specimen Comment: A courtesy copy of this report has been sent to [phone] Performed at: 01 [facility] [address] [place] [address], [place], [place] [id number] MD Obed Weems MD Phone: [phone]
[2023-11-29] MEDS: LACTATED RINGERS 1,000 ML 21 ML IV (11:29)
[2023-11-29] MEDS: CEFAZOLIN 2 GM/100 ML PREMIX 100 ML IV (12:37)
[2023-11-29] MEDS: BUPIVACAINE 0.25% (PF) VIAL 30 ML INJ (12:51)
--- NOTE | 2023-11-29 13:06 | SUR.OPER ---
Supine on padded OR bed, head on pillow, arms secured on padded arm boards at <90 degrees abduction, legs uncrossed, safety belt at thigh, tape over blanket over lower legs. Gel pad under heels.
--- NOTE | 2023-11-29 13:48 | P.OP_ITS ---
Operative Date/Time/Diagnoses Date of procedure: 11/29/23 Time of procedure: 13:48 Pre-op diagnosis: Right breast mass Post-op diagnosis: same Procedure & Clinicians Procedure: Needle-guided right lumpectomy Same procedure as scheduled: Yes Indications: 53-year-old woman with a 1 cm right breast mass. Core needle biopsy demonstrates focus of atypical lobular hyperplasia. We discussed management options including observation versus surgical excision. Her preference was to proceed with excision and she is here for guided lumpectomy. Surgeon: Thong Tejada Click Yes if Unassisted: Yes Anesthesia Type: General Operative Notes Findings: 2 cm right breast mass removed contains the clip and wire. Margins were labeled as following Anterior Green Inferior Blue Lateral [place] Medial Yellow Posterior Black Superior Red Specimen(s): other (Right breast mass ) Estimated Blood Loss (mL): 10 Procedure in detail: Patient was brought to the operating room and placed supine on the table. Bilateral lower extremity compression devices were applied. They were intubated with an LMA. They were prepped and draped in sterile fashion. Time-out was performed. A curvilinear incision on the areola of the right breast was made and subcutaneous tissues were divided. The localizing wire was identified and then brought back within the incision. The end of the wire was within a anterior depth breast mass. The mass was excised with the wire and the clip, size approximately 2 cm. Two metallic clips were left in the posterior aspect of the lumpectomy cavity. The specimen was marked using the [employer] paint system for breast and soft tissue in the following fashion: Anterior Green Inferior Blue Lateral [place] Medial Yellow Posterior Black Superior Red Imaging demonstrated that the specimen contained the wire and the associated clip. Subcutaneous tissues were reapproximated with 3 0 Vicryl sutures skin closed with Monocryl followed by application of Dermabond. The counts were correct. They emerged from anesthesia and were transfered to recovery in stable condition. Complications: none Post-operative Condition: stable Disposition: same day surgery
--- NOTE | 2023-11-29 14:46 | SUR.PHASEII ---
Report received from Ralph Esteban RN. Pt placed on continuous monitor. Anju, significant other at bedside.
[2023-11-29] MEDS: ONDANSETRON 4 MG/2 ML INJ IV (15:51)
--- NOTE | 2023-11-29 15:55 | SUR.PHASEII ---
Pt dozing on and off. O2 down to 88% when drifts off. Instructed on use of incentive spirometer. Up to 1750ml x1. Pt became nauseas and vomitted after coughing followng IS. Zofran given with good effect.
--- NOTE | 2023-11-29 16:19 | SUR.PHASEII ---
O2 sat 83% with shallow resp when asleep. O2 sats 95-98% when awake. Will have Dr Martinez assess the pt.
--- NOTE | 2023-11-29 16:48 | SUR.PHASEII ---
Con't with sleep apnea and desating. Awaiting Dr Tejada and/or Dr Martinez to assess pt. jReport to Ralph Esteban RN.
--- NOTE | 2023-11-29 16:54 | SUR.PHASEII ---
Dr Tejada apprised of situation. Pt will be admitted over night.
[2023-11-29] MEDS: IBUPROFEN 600 MG TABLET PO ×2 (17:55→22:21)
[2023-11-29] MEDS: ACETAMINOPHEN 325 MG TABLET 650 MG PO ×2 (17:55→22:21)
[2023-11-29] MEDS: AZELASTINE NASAL (20:35)
[2023-11-29] MEDS: FLUTICASONE NASAL (20:35)
[2023-11-29] MEDS: ALBUTEROL 2.5 MG/3 ML NEB (ADULT) INH (21:00)
[2023-11-29] MEDS: BUDESONIDE 0.5 MG/2 ML NEB INH (21:00)
[2023-11-30] VITALS: BP 109/64; PULSE 111; RESP 18; TEMP 36.4; O2SAT 98
[2023-11-30 04:00] VITALS: BP 102/64; PULSE 104; RESP 17; TEMP 35.7; O2SAT 98
[2023-11-30] MEDS: IBUPROFEN 600 MG TABLET PO ×2 (05:26→09:59)
[2023-11-30] MEDS: PANTOPRAZOLE DR 20 MG TABLET PO (05:26)
[2023-11-30] MEDS: ACETAMINOPHEN 325 MG TABLET 650 MG PO ×2 (05:26→09:59)
[2023-11-30] MEDS: ALBUTEROL 2.5 MG/3 ML NEB (ADULT) INH (07:25)
[2023-11-30] MEDS: BUDESONIDE 0.5 MG/2 ML NEB INH (07:25)
[2023-11-30 07:26] VITALS: O2SAT 98
[2023-11-30 08:00] VITALS: BP 95/56; PULSE 99; RESP 20; TEMP 35.9; O2SAT 98
--- NOTE | 2023-11-30 11:18 | CM.DANOTE ---
Initial DCP Assessment Visit Note Reviewed EMR and team rounds for pt's medical status and anticipated d/c needs. Met with pt at bedside to introduce self and role, pt found to be alert/oriented, preparing for d/c. Her [place]. No identified d/c needs indicated. Payor: Lynnette Attending: Dr. Tejada Pt is a 53 year-old F placed in an [facility] bed following a right-breast lumpectomy. She has a new dx of atypical lobular hyperplasia of the R-breast, consulted with surgery re: options, and agreed on a plan for surgery. She has a referral for f/u w/Oncology, and will f/u post-operatively with Dr. Tejada to assess her surgical wound and address any further pathology resulting from the surgical specimen. This OIL DRILLING ENGINEER provided her with a Medical Priority Boarding Pass, per her request. Discharge Planning/Care Management CM Discharge Assessment Start: 11/30/23 11:15 Freq: Status: Active Protocol: Document 11/30/23 11:16 DPL (Rec: 11/30/23 11:17 DPL [id number]) Discharge Planning Assessment Assigned Refrigerator Car Icer [place] Lock Advance Directives? No History Provided By Patient,Medical Record Has Patient been admitted in last 30 No days? Prior Living Arrangements House Household Members significant other Type of transporation used prior to Drives own vehicle admit Willing to Return to Facility? No Independent with ADL's Yes Is patient alert and oriented? Yes Comment N/A Caregiver for Another No Comment No anticipated d/c needs identified at this time. Barriers to Discharge No Discharge Plan Home Transportation Arrangement Significant other. Referrals Initiated None needed Whiteboard Updated in Patient Room with Yes name and ext. # of Refrigerator Car Icer Review Status In Process Please Provide Date Initial DC 11/30/23 Assessment Was Performed Pre-Anesthesia Assessment Start: 11/27/23 12:54 Freq: Status: Discharge Protocol: Document 11/27/23 12:54 CAB (Rec: 11/27/23 13:07 CAB [id number]) Pre-Anesthesia Assessment Patient Information Reviewed Via Chart Review Primary Care Provider Lauren Anderson Seen Specialist in Last 12 Months Yes Specialist Seen General surgeon Primary Language Slovak Vessel Slag Worker Required No Height 148.59 cm Weight 61.235 kg Body Mass Index (BMI) 27.7 Barriers to Learning None Anesthesia Review Requested No Human Resources File Clerk No alcohol intake never Smoking Status Never smoker History of Falling (Recent or History of No ) Patient is completely paralyzed or No completely immobile Mental Status Oriented to own ability Is patient on oxygen? No Does patient have GAMBLE/SOB Yes: Asthma Hx Sleep Apnea No Can You Climb a Flight of Stairs Without No: Asthma SOB Hx SOB Yes: Asthma Anti-Coagulant Therapy No Hx Pacemaker/ICD No Pacemaker Rep Required? No Cardiac Clearance Received Not Applicable Urinary Catheter Present No Hx Urinary Self Catheterization No Diabetes No Patient No Lactating No Marital Status Life Partner Lives With significant other Patient Discharge Plan Description Return Home Comment Lives on [facility]
== END 2023-11-30 10:04 | disposition home or self-care (01) ==
LOC: OR 14:13 → AC 11-30 11:41
PROVIDERS: Admitting Provider Surgery; Family Provider Physician Assistant; PCP Physician Assistant; Referring Provider Surgery; Visit Provider Surgery
PROC: (CPT 19125; principal; 2023-11-29 12:15)
DX: N60.91 Unspecified benign mammary dysplasia of right breast (principal); R00.0 Tachycardia, unspecified; N63.15 Unspecified lump in the right breast, overlapping quadrants
CPT/HCPCS: 19125; 19285; 76098; 77065; 82962; 93005; 93010; 94640; 94762; G0378; C1819; J0330; J0690; J1170; J2250; J2310; J2405; J2704; J3010; J7613

== ENCOUNTER → 2024-01-09 12:35 | Outpatient (CLI) | payer OTHER, MEDICAID, SELFPAY ==
[2023-11-29 17:40] VITALS: BMI 27.7
[2024-01-09 19:06] LABS: Alanine Aminotransferase 23 IU/L (<35); Albumin 4.1 g/dL (3.5-5.0); Albumin Globulin Ratio 1.4 (1.0-2.8); Alkaline Phosphatase 64 U/L (38-126); Aspartate Aminotransferase 29 IU/L (14-36); BUN Creatinine Ratio 23.1 (6-22); Bilirubin Total 0.3 mg/dL (0.2-1.3); Blood Urea Nitrogen 12 mg/dL (7-17); Calcium 9.1 mg/dL (8.4-10.2); Carbon Dioxide 26 mmol/L (22-32); Chloride 105 mmol/L (98-107); Estimated Glomerular Filt Rate > 60 mL/min (>60); Glucose 179 mg/dL (70-100); HEMOLYSIS < 15 (0-50); Potassium 3.7 mmol/L (3.4-5.1); Sodium 139 mmol/L (137-145); Total Protein 7.1 g/dL (6.3-8.2)
[2024-01-09 19:08] LABS: Add Manual Diff / Slide Review NO; Basophils Absolute Auto 100 /uL (0-100); Basophils Percent Auto 0.7 % (0-2); Eosinophils Absolute Auto 100 /uL (0-450); Eosinophils Percent Auto 1.4 % (2-4); Hematocrit 35.8 % (36-46); Hemoglobin 11.9 g/dL (12.0-16.0); Lymphocytes Absolute Auto 1900 /uL (1100-4500); Lymphocytes Percent Auto 27.2 % (25-40); Mean Corpuscular HGB Conc 33.2 % (30-36); Mean Corpuscular Hemoglobin 31.1 PG (26-34); Mean Corpuscular Volume 93.6 fL (80-100); Monocytes Absolute Auto 400 /uL (0-900); Monocytes Percent Auto 6.2 % (3-14); Neutrophils Absolute Auto 4600 /uL (1500-7000); Neutrophils Percent Auto 64.5 % (50-75); Platelet Count 252 X10^3/uL (150-400); Red Blood Cell Count 3.83 X10^6/uL (4.0-5.2); Red Cell Distribution Width 14.6 % (11.6-14.8); White Blood Cell Count 7.1 X10^3/uL (4.5-11.0)
[2024-01-09 19:25] LABS: Monotest Negative (Negative)
== END ==
PROVIDERS: Family Provider Physician Assistant; PCP Physician Assistant; Visit Provider Physician Assistant
DX: J02.9 Acute pharyngitis, unspecified (principal); R53.83 Other fatigue; Z87.09 Personal history of other diseases of the respiratory system; R74.8 Abnormal levels of other serum enzymes
CPT/HCPCS: 80053; 85025; 86318; 87070

== ENCOUNTER → 2024-01-10 15:28 | Outpatient (CLI) | payer OTHER, MEDICAID, SELFPAY ==
[2023-11-29 17:40] VITALS: BMI 27.7
[2024-01-12 12:57] LABS: Fecal Immunochemical Test Negative (Negative)
== END ==
PROVIDERS: Family Provider Physician Assistant; PCP Physician Assistant; Visit Provider Physician Assistant
DX: D64.9 Anemia, unspecified (principal)
CPT/HCPCS: 82274

== ENCOUNTER → 2024-09-04 09:26 | Outpatient (CLI) | payer OTHER, SELFPAY ==
[2023-11-29 17:40] VITALS: BMI 27.7
[2024-09-04 19:26] LABS: Add Manual Diff / Slide Review NO; Basophils Absolute Auto 100 /uL (0-100); Basophils Percent Auto 0.8 % (0-2); Eosinophils Absolute Auto 200 /uL (0-450); Eosinophils Percent Auto 2.6 % (2-4); Hematocrit 38.7 % (36-46); Lymphocytes Absolute Auto 2900 /uL (1100-4500); Lymphocytes Percent Auto 38.4 % (25-40); Mean Corpuscular HGB Conc 33.6 % (30-36); Mean Corpuscular Hemoglobin 31.4 PG (26-34); Mean Corpuscular Volume 93.6 fL (80-100); Monocytes Absolute Auto 500 /uL (0-900); Monocytes Percent Auto 6.9 % (3-14); Neutrophils Absolute Auto 3900 /uL (1500-7000); Neutrophils Percent Auto 51.3 % (50-75); Platelet Count 221 X10^3/uL (150-400); Red Blood Cell Count 4.13 X10^6/uL (4.0-5.2); Red Cell Distribution Width 14.2 % (11.6-14.8); White Blood Cell Count 7.6 X10^3/uL (4.5-11.0)
[2024-09-04 19:27] LABS: HEMOLYSIS 17 (0-50)
[2024-09-04 19:32] LABS: Iron 70 ug/dL (37-170)
[2024-09-04 19:35] LABS: Cholesterol 209 mg/dL (140-199); HDL Cholesterol 54 mg/dL (40-60); LDL Cholesterol Calculated 115 mg/dL (<100); Triglycerides 201 mg/dL (35-150)
[2024-09-04 20:13] LABS: Ferritin 39 ng/mL (11-264)
[2024-09-04 20:37] LABS: HIV 1 & 2 Ab/Ag 4th Gen Combo NEGATIVE (NEGATIVE); Hep C Virus Ab w/Reflex Quant NEGATIVE s/c (NEGATIVE)
[2024-09-04 20:39] LABS: Folate 18.9 ng/mL (2.76-20.0); Vitamin B12 590 pg/mL (239-931)
[2024-09-05 20:16] LABS: Percent Iron Saturation 21 % (15-50); Total Iron Binding Capacity 341 ug/dL (265-497); Transferrin 284 mg/dL (206-381)
== END ==
PROVIDERS: Family Provider Physician Assistant; PCP Physician Assistant; Visit Provider Physician Assistant
DX: D64.9 Anemia, unspecified (principal); Z86.2 Personal history of diseases of the blood and blood-forming organs and certain disorders involving the immune mechanism; R74.8 Abnormal levels of other serum enzymes; E78.5 Hyperlipidemia, unspecified; Z11.59 Encounter for screening for other viral diseases; Z78.9 Other specified health status; Z11.4 Encounter for screening for human immunodeficiency virus [HIV]
CPT/HCPCS: 80061; 82607; 82728; 82746; 83540; 83550; 85025; 86803; 87389

== ENCOUNTER → 2024-09-27 15:28 | Outpatient (CLI) | payer OTHER, SELFPAY ==
[2023-11-29 17:40] VITALS: BMI 27.7
== END ==
PROVIDERS: Family Provider Physician Assistant; PCP Physician Assistant; Visit Provider Nurse Practitioner Family
DX: R30.0 Dysuria (principal); N94.89 Other specified conditions associated with female genital organs and menstrual cycle; L29.2 Pruritus vulvae
CPT/HCPCS: 87077; 87086; 87147; 87210

== ENCOUNTER → 2024-10-29 09:28 | Outpatient (CLI) | payer OTHER, SELFPAY ==
[2023-11-29 17:40] VITALS: BMI 27.7
[2024-10-29 19:39] LABS: Cholesterol 226 mg/dL (140-199); HDL Cholesterol 54 mg/dL (40-60); LDL Cholesterol Calculated 111 mg/dL (<100); Triglycerides 307 mg/dL (35-150)
== END ==
PROVIDERS: Family Provider Physician Assistant; PCP Physician Assistant; Visit Provider Physician Assistant
DX: E78.2 Mixed hyperlipidemia (principal)
CPT/HCPCS: 80061

== ENCOUNTER → 2025-02-24 08:52 | Outpatient (CLI) | payer BC, SELFPAY ==
[2023-11-29 17:40] VITALS: BMI 27.7
[2025-02-24 18:51] LABS: Alanine Aminotransferase 32 IU/L (<35); Albumin 4.6 g/dL (3.5-5.0); Albumin Globulin Ratio 1.4 (1.0-2.8); Alkaline Phosphatase 79 U/L (38-126); Aspartate Aminotransferase 96 IU/L (14-36); Bilirubin Total 0.4 mg/dL (0.2-1.3); Blood Urea Nitrogen 14 mg/dL (7-17); Carbon Dioxide 32 mmol/L (22-32); Chloride 102 mmol/L (98-107); Cholesterol 160 mg/dL (140-199); Estimated Glomerular Filt Rate > 60 mL/min (>60); Globulin 3.2 g/dL (1.7-4.1); Glucose 101 mg/dL (70-100); HDL Cholesterol 49 mg/dL (40-60); HEMOLYSIS 27 (0-50); LDL Cholesterol Calculated 73 mg/dL (<100); Potassium 4.7 mmol/L (3.4-5.1); Sodium 140 mmol/L (137-145); Total Protein 7.8 g/dL (6.3-8.2); Triglycerides 191 mg/dL (35-150)
== END ==
PROVIDERS: Family Provider Physician Assistant; PCP Physician Assistant; Visit Provider Physician Assistant
DX: Z78.9 Other specified health status (principal); Z79.899 Other long term (current) drug therapy; E78.2 Mixed hyperlipidemia; R74.8 Abnormal levels of other serum enzymes
CPT/HCPCS: 80053; 80061; 86735; 86762; 86765

== ENCOUNTER → 2025-05-02 12:46 | Outpatient (CLI) | payer BC, SELFPAY ==
[2023-11-29 17:40] VITALS: BMI 27.7
--- NOTE | 2025-05-02 12:48 | DI.MRI.S_ITS ---
MR breast BI wo/w con: 05/02/2025. BI-RADS: 4 CLINICAL: 54-year old female for bilateral diagnostic breast MRI. High-Risk Screening MRI. Current reported family history of breast cancer: mother. PRIOR EXAMS 11/29/2023, 10/16/2023, 09/27/2023, 03/29/2023, 10/04/2022. MRI TECHNIQUE Bilateral breast MRI was performed on a 1.5 Denae magnet using a dedicated breast coil with mild compression. Axial T1 and T2 STIR sequences were obtained. Dynamic contrast enhanced VIBRANT fat-suppressed sequences were obtained. Delayed sagittal high resolution or sagittal reconstructed isotropic sequence was also obtained. Subtraction images and maximum intensity projection images were obtained. The study was evaluated using Crovat software. IV Contrast: 20 ml ProHance. FIBROGLANDULAR TISSUE Bilateral: C. Heterogeneous fibroglandular tissue. BACKGROUND PARENCHYMAL ENHANCEMENT Bilateral: Mild symmetrical background parenchymal enhancement. BREAST FINDINGS Right: Outer at 9:00, 4.4 cm from nipple, (Sagittal S:13/I:48), (Axial S:7/I:57), Posterior depth, measuring 0.4 x 0.5 x 0.9cm: There is non-mass enhancement in focal distribution with kinetic enhancement curve showing fast initial phase and washout pattern on delayed phase. Right: There are post surgical changes from prior excisional biopsy. Left: No suspicious mass, suspicious non-mass enhancement, or other concerning finding identified. IMPRESSION: Right (Non-Mass): Outer at 9:00, 4.4 cm from nipple, (Sagittal S:13/I:48), (Axial S:7/I:57), Posterior depth, measuring 0.4 x 0.5 x 0.9cm * Suspicious findings with likelihood of malignancy. Left * No evidence of malignancy. RECOMMENDATIONS Right: Outer at 9:00, 4.4 cm from nipple, Posterior depth * Further evaluation with diagnostic ultrasound. * Second-look ultrasound followed by ultrasound guided biopsy. If there is no ultrasound correlate, MRI-guided biopsy is recommended. OVERALL ASSESSMENT CATEGORY BI-RADS-4: Suspicious. ELECTRONICALLY SIGNED: Cami Weaver M.D. on 05/08/2025 at 12:15:44 AM PT Interpreting Station ID: [id number]
== END ==
LOC: MRI 12:47
PROVIDERS: Family Provider Physician Assistant; PCP Physician Assistant; Referring Provider Physician Assistant; Visit Provider Physician Assistant
DX: Z12.39 Encounter for other screening for malignant neoplasm of breast (principal); R92.333 Mammographic heterogeneous density, bilateral breasts; Z80.3 Family history of malignant neoplasm of breast
CPT/HCPCS: 77049; A9579

== ENCOUNTER → 2025-05-22 12:04 | Outpatient (CLI) | payer BC, SELFPAY ==
[2023-11-29 17:40] VITALS: BMI 27.7
== END ==
PROVIDERS: Family Provider Physician Assistant; PCP Physician Assistant; Visit Provider Nurse Practitioner Family
DX: S41.109A Unspecified open wound of unspecified upper arm, initial encounter (principal)
CPT/HCPCS: 87070; 87075; 87205

== ENCOUNTER → 2025-05-22 14:22 | Outpatient (CLI) | payer BC, SELFPAY ==
[2023-11-29 17:40] VITALS: BMI 27.7
--- NOTE | 2025-05-22 14:23 | DI.US.S_ITS ---
US breast RT limited: 05/22/2025. BI-RADS: 1 CLINICAL: 54-year old female for right diagnostic breast ultrasound that is a follow-up to diagnostic breast MRI on 05/02/2025. Tyrer-Cuzick lifetime risk of 18.7%. Current reported family history of breast cancer: mother. PRIOR EXAMS 05/02/2025, 11/29/2023, 10/16/2023, 09/27/2023, 03/29/2023, 10/04/2022. ULTRASOUND TECHNIQUE Real-time ho scale imaging of the area of clinical interest was performed with image documentation. TARGETED Right Breast Ultrasound: Real-time ultrasound exam was performed focused to area of clinical and/or imaging concern. ULTRASOUND FINDINGS Right: Outer at 9:00, 4.4 cm from nipple, previously measuring (05/02/2025) 0.4 x 0.5 x 0.9 cm: The area from 8-10 o'clock, 4 cm from the nipple was scanned. There is no sonographic abnormality to account for imaging concern on MRI. IMPRESSION: Right * No evidence of malignancy. RECOMMENDATIONS Right: Outer at 9:00, 4.4 cm from nipple * No sonographic correlate is identified for the nonmass enhancement seen on MRI 05/02/2025. Therefore, an MRI guided biopsy is recommended. COMMENTS: Findings and recommendations were conveyed to the patient during today's evaluation. OVERALL ASSESSMENT CATEGORY BI-RADS-1: Negative. ELECTRONICALLY SIGNED: Bailey Chen M.D. on 05/22/2025 at 03:35:17 PM PT Interpreting Station ID: [id number]
== END ==
PROVIDERS: Family Provider Physician Assistant; PCP Physician Assistant; Referring Provider Physician Assistant; Visit Provider Physician Assistant
DX: R92.8 Other abnormal and inconclusive findings on diagnostic imaging of breast (principal); Z80.3 Family history of malignant neoplasm of breast; S41.109A Unspecified open wound of unspecified upper arm, initial encounter
CPT/HCPCS: 76642; 87070; 87075; 87205

== ENCOUNTER → 2025-10-01 10:24 | Outpatient (CLI) | payer BC, SELFPAY ==
[2023-11-29 17:40] VITALS: BMI 27.7
[2025-10-01 19:22] LABS: Add Manual Diff / Slide Review NO; Hematocrit 39.7 % (36-46); Hemoglobin 13.3 g/dL (12.0-16.0); Lymphocytes Absolute Auto 3000 /uL (1100-4500); Mean Corpuscular HGB Conc 33.6 % (30-36); Mean Corpuscular Hemoglobin 31.1 PG (26-34); Mean Corpuscular Volume 92.6 fL (80-100); Platelet Count 248 X10^3/uL (150-400)
[2025-10-01 19:23] LABS: Alanine Aminotransferase 28 IU/L (<35); Albumin 4.8 g/dL (3.5-5.0); Albumin Globulin Ratio 1.5 (1.0-2.8); Alkaline Phosphatase 88 U/L (38-126); Cholesterol 170 mg/dL (140-199); Globulin 3.1 g/dL (1.7-4.1); HDL Cholesterol 58 mg/dL (40-60); HEMOLYSIS 17 (0-50); Total Protein 7.9 g/dL (6.3-8.2); Triglycerides 257 mg/dL (35-150)
[2025-10-01 19:51] LABS: TSH w/ Reflex to FT4 4.02 uIU/mL (0.47-4.68)
== END ==
PROVIDERS: Family Provider Physician Assistant; PCP Physician Assistant; Visit Provider Physician Assistant
DX: R74.8 Abnormal levels of other serum enzymes (principal); E78.5 Hyperlipidemia, unspecified; R20.2 Paresthesia of skin; R00.0 Tachycardia, unspecified; Z79.899 Other long term (current) drug therapy
CPT/HCPCS: 80061; 80076; 84443; 85025